=== PATIENT | male | born 1995 | race Caucasian/White ===

== ENCOUNTER 2017-03-31 02:30 | Emergency (ER) | payer OTHER ==
[2017-03-31] MEDS ORDERED: EPINEPHrine HCL (1:10,000) 1 MG/10 ML SYRINGE IV ONE (02:31)
[2017-03-31 02:33] VITALS: O2SAT 0
[2017-03-31 02:55] LABS: I-STAT POTASSIUM 5.9 MMOL/L (3.5-4.9)
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
== END 2017-03-31 04:30 | disposition expired ==
LOC: NEPI 02:30 → EDBD 02:30 → NEPI 04:30
DX: I46.9 Cardiac arrest, cause unspecified (principal); S02.91XB Unspecified fracture of skull, initial encounter for open fracture; S72.91XA Unspecified fracture of right femur, initial encounter for closed fracture; S82.202B Unspecified fracture of shaft of left tibia, initial encounter for open fracture type I or II; S82.402B Unspecified fracture of shaft of left fibula, initial encounter for open fracture type I or II; V29.9XXA Motorcycle rider (driver) (passenger) injured in unspecified traffic accident, initial encounter
CPT/HCPCS: 82435; 82565; 82947; 84132; 84295; 84520; 92950; 99285; 99291; J0171; G0390